=== PATIENT | female | born 1950 | race Caucasian/White ===

== ENCOUNTER 2018-01-18 10:07 | Emergency (ER) | payer MEDICARE, BC ==
[2018-01-18 10:13] VITALS: TEMP 98.3
[2018-01-18] MEDS ORDERED: ALBUTEROL/IPRATROPIUM 1 VIAL SOL INH ONE (10:48)
[2018-01-18] MEDS ORDERED: SOLUMEDROL 125 MG/2 ML 125 MG/2 ML PDS IV ONE (10:49)
[2018-01-18] MEDS ORDERED: SODIUM CHLORIDE 0.9% 250 ML 250 ML IV ONE (10:50)
[2018-01-18] MEDS ORDERED: SODIUM CHLORIDE 0.9% 50 ML 25 ML IV PRN (10:50)
[2018-01-18] MEDS ORDERED: SOLUMEDROL 125 MG/2 ML 125 MG/2 ML PDS ONE (10:52)
[2018-01-18] MEDS ORDERED: ALBUTEROL/IPRATROPIUM 1 VIAL SOL ONE (10:53)
[2018-01-18] MEDS ORDERED: LORAZEPAM 2 MG/ML 10ML MDV 2 MG/ML VIAL IV ONE (12:11)
[2018-01-18] MEDS ORDERED: LORAZEPAM 2 MG/ML SOL ONE (12:25)
[2018-01-18] MEDS ORDERED: ALBUTEROL NEB SOL 2.5MG/3ML 1 VIAL SOL NEB ONE (12:31)
[2018-01-18] MEDS ORDERED: ALBUTEROL NEB SOL 2.5MG/3ML 1 VIAL SOL ONE (12:51)
[2018-01-18 14:04] VITALS: BP 127/58; PULSE 100; RESP 22; O2SAT 92
== END 2018-01-18 13:55 | disposition home or self-care (01) | DRG 192 ==
LOC: ED 10:07
DX: J44.1 Chronic obstructive pulmonary disease with (acute) exacerbation (principal); Z87.891 Personal history of nicotine dependence
CPT/HCPCS: 71046; 96365; 96374; 96375; 99284; 99285; J2060; J2930; J7613

== ENCOUNTER 2018-08-24 09:22 | Day surgery (SDC) | payer MEDICARE, BC ==
[2018-08-24] MEDS ORDERED: PROPOFOL 500 MG/50 ML EMU IV ONE (10:02)
[2018-08-24] MEDS ORDERED: LIDOCAINE HCL 1% MPF 30 SOL ONE (10:29)
[2018-08-24] MEDS ORDERED: GLYCOPYRROLATE 0.2 MG/ML SOL ONE (10:37)
[2018-08-24] MEDS ORDERED: PROPOFOL 10 MG/ML 200 MG/20 ML EMU IV ONE (10:45)
[2018-08-24 10:58] VITALS: RESP 12
[2018-08-24 11:36] VITALS: PULSE 67; TEMP 97.7; O2SAT 97
[2018-08-24 11:50] VITALS: BP 163/84
== END 2018-08-24 11:55 | disposition home or self-care (01) | DRG 951 ==
LOC: SURG 09:22
PROVIDERS: ATTEND Surgery
DX: Z12.11 Encounter for screening for malignant neoplasm of colon (principal); Z86.010 Personal history of colon polyps
CPT/HCPCS: J7643; J2001; J2704